=== PATIENT | female | born 1980 | race Caucasian/White ===

== ENCOUNTER → 2019-03-04 17:59 | Outpatient (CLI) | payer OTHER, SELFPAY ==
[2019-03-04 13:32] VITALS: BMI 22.3
[2019-03-04 20:41] LABS: Chlamydia Trachomatis by PCR Negative (Negative); Neisserai gonorrhoeae by PCR Negative (Negative); Probe Check PASS; Sample Adequacy Control PASS; Specimen Processing Control PASS
[2019-03-07 13:42] LABS: HPV APTIMA, High Risk Negative (Negative)
== END ==
PROVIDERS: Family Provider Family Medicine; PCP Family Medicine; Referring Provider Obstetrics & Gynecology; Visit Provider Obstetrics & Gynecology
DX: O09.529 Supervision of elderly multigravida, unspecified trimester (principal); Z12.4 Encounter for screening for malignant neoplasm of cervix
CPT/HCPCS: 87086; 87491; 87591; 87624; 88175; G0145

== ENCOUNTER → 2019-04-01 | Outpatient (CLI) | payer OTHER, SELFPAY ==
[2019-04-01 11:27] VITALS: BMI 22.3
[2019-04-01 11:56] LABS: Absolute Lymphocyte Count 1.11 X10^3/ul (0.83-4.51); Absolute Neutrophil Count 5.6 X10^3/uL (2.0-7.7); Basophil# 0.01 X10^3/uL; Basophil% 0.1 % (0-1); Eosinophil# 0.04 X10^3/uL; Eosinophils% 0.6 % (0-5); Hemoglobin 13.9 g/dl (12.0-15.0); Lymphocyte # 1.11 X10^3/ul (4.0); Lymphocyte % 15.7 % (19-41); Mean Corp Hgb Conc 34.8 g/gl (32-36); Mean Corpuscular Hgb 31.8 pg (27.0-32.0); Mean Corpuscular Volume 91.5 fL (81-99); Mean Platelet Vol. 9.9 fl (6.2-12.0); Monocyte# 0.31 X10^3/uL; Monocyte% 4.4 % (0-10); Neutrophil # 5.58 X10^3/uL (2.7-7.7); Neutrophil % 79.1 % (47-70); POSITIVE COUNT NO; POSITIVE DIFFERENTIAL NO; POSITIVE MORPHOLOGY NO; Platelet Count 215 K/mm3 (150-450); RBC Distribution Width SD 43.5 fl (35.1-43.9); Red Blood Count 4.37 M/mm3 (4.2-5.4); White Blood Count 7.1 K/mm3 (4.4-11.0)
[2019-04-01 13:47] LABS: HIV - WCH Non-Reactive (Nonreactive); Rubella IgG > 500.0 IU/mL
[2019-04-02 13:24] LABS: HEPATITIS B SURFACE AG Negative (Negative)
[2019-04-04 03:28] LABS: Rapid Plasmin Reagin (RPR) NONREACTIVE (NONREACTIVE)
== END | disposition home or self-care (01) ==
LOC: PAVLAB 11:41
PROVIDERS: Family Provider Family Medicine; PCP Family Medicine; Referring Provider Obstetrics & Gynecology; Visit Provider Obstetrics & Gynecology
DX: O09.529 Supervision of elderly multigravida, unspecified trimester (principal); Z3A.00 Weeks of gestation of pregnancy not specified
CPT/HCPCS: 36415; 85025; 86592; 86703; 86762; 86850; 86900; 87340

== ENCOUNTER → 2019-07-22 | Outpatient (CLI) | payer OTHER, SELFPAY ==
[2019-07-22 10:16] VITALS: BMI 24.8
[2019-07-22 11:15] LABS: Absolute Lymphocyte Count 0.98 X10^3/uL (0.83-4.51); Absolute Neutrophil Count 4.7 X10^3/uL (2.0-7.7); Basophil# 0.01 X10^3/uL; Basophil% 0.2 % (0-1); Eosinophil# 0.03 X10^3/uL; Eosinophils% 0.5 % (0-5); Hematocrit 37.2 % (37-47); Hemoglobin 12.7 g/dL (12.0-15.0); Lymphocyte # 0.98 X10^3/ul (4.0); Lymphocyte % 16.3 % (19-41); Mean Corp Hgb Conc 34.1 g/dL (32-36); Mean Corpuscular Hgb 32.1 pg (27.0-32.0); Mean Corpuscular Volume 93.9 fL (81-99); Monocyte# 0.28 X10^3/uL; Monocyte% 4.7 % (0-10); NRBC Flagged by Analyzer 0 % (0-5); Neutrophil # 4.68 X10^3/uL (2.7-7.7); Platelet Count 155 K/mm3 (150-450); RBC Distribution Width CV 12.9 % (11.6-14.6); RBC Distribution Width SD 44.4 fl (35.1-43.9); Red Blood Count 3.96 M/mm3 (4.2-5.4)
[2019-07-22 11:25] LABS: Glucose Challenge Gest 1H 50g 87 mg/dL (70-140)
== END | disposition home or self-care (01) ==
LOC: PAVLAB 10:52
PROVIDERS: Family Provider Family Medicine; PCP Family Medicine; Visit Provider Obstetrics & Gynecology
DX: Z34.90 Encounter for supervision of normal pregnancy, unspecified, unspecified trimester (principal); Z3A.28 28 weeks gestation of pregnancy
CPT/HCPCS: 36415; 82950; 85025

== ENCOUNTER 2019-07-29 13:00 | Outpatient (CLI) | payer OTHER, SELFPAY ==
[2019-07-22 10:16] VITALS: BMI 24.8
[2019-07-29 13:18] VITALS: BMI 25.9
--- NOTE | 2019-07-29 13:24 | VDLE_ITS ---
Reason For Study: Pain RIGHT LEFT GSV is normal. GSV is normal. CFV is compressible, spontaneous, phasic, CFV is compressible, spontaneous, phasic, competent and demonstrates normal competent, and demonstrates normal augmentation. augmentation. FV is compressible, spontaneous, phasic, FV is compressible, spontaneous, phasic, competent and demonstrates normal competent and demonstrates normal augmentation. augmentation. POP V is compressible, spontaneous, phasic, POP V is compressible, spontaneous, phasic, competent and demonstrates normal competent and demonstrates normal augmentation. augmentation. T/P Trunk is compressible. T/P Trunk is compressible. PTV is compressible. PTV is compressible. RT PerV is compressible. LT PerV is compressible. Thrombus filled varicose veins noted in the posterior prximal calf. Procedure Exam performed in department. A preliminary report was called and/or faxed to Pt's Nurse. Interpretation Summary No evidence for acute deep venous thrombosis bilateral lower extremities.Patent and compressible bilateral great saphenous veins. Superficial thrombophlebitis right proximal posterior calf varicosities. Ordering Physician: Jailene Marques Referring Physician: Krystin Meneses Performed By: Shala Mckeon RVT
[2019-07-29 14:16] LABS: Bacteria 0 SEEN /hpf (None Seen); Mucous, Urine 0 SEEN /hpf (<or=2+); Red Blood Cells-Urine 0 SEEN /hpf (0-5); Squamous Epithelial Cells - UA 0 SEEN /hpf (5-10); White Blood Cells 0 SEEN /hpf (0-5)
[2019-07-29 14:19] LABS: Color, Urine Straw (Yellow); Glucose, Dipstick Normal (Normal); Ketone-Dipstick Negative (Negative); Leukocyte Esterase-Dipstick Negative /ul (Negative); Nitrite-Dipstick Negative (Negative); Occult Blood-Urine Negative /ul (Negative); Protein-Dipstick Negative (Negative); Specific Gravity, Urine 1.005 (1.002-1.030); Urine Bilirubin Dipstick Negative (Negative); Urine Clarity Clear (Clear); Urine Urobilinogen Normal (Normal)
--- NOTE | 2019-07-30 05:38 | OB.TRI.PN_ITS ---
Progress Notes Date of Service: 07/29/19 Progress Note: Patient seen for contractions and right posterior calf pain. Patient has had a history of varicose veins and works as a beautician. She is declined compression stockings previously and in the last day or 2 she has noted increase pain in her right upper calf superficially and feels a lump there. FHT: 130 moderate variability reactive no decelerations category I tracing [place]: No regular contractions Assessment and plan superficial thrombi-itis and right calf, discussed with Dr. Barber recommend 81 mg aspirin and compression stockings, follow-up in the office with Dr. owen. Local supportive care encouraged. Cervix closed with no labor remnant. Laboratory Studies: Laboratory Tests 07/29/19 Range/Units 14:00 Urine Color Straw (Yellow) Urine Clarity Clear (Clear) Urine pH 7.0 (5.0 - 8.0) Ur Specific [place] 1.005 (1.002-1.030) Urine Protein Negative (Negative) mg/dl Urine Glucose (UA) Normal (Normal) mg/dl Urine Ketones Negative (Negative) mg/dl Urine Occult Blood Negative (Negative) /ul Urine Nitrite Negative (Negative) Urine Bilirubin Negative (Negative) mg/dL Urine Urobilinogen Normal (Normal) mg/dl Ur Leukocyte Esterase Negative (Negative) /ul Urine RBC 0 SEEN (0-5) /hpf Urine WBC 0 SEEN (0-5) /hpf Ur Squamous Epith Cells 0 SEEN (5-10) /hpf Urine Bacteria 0 SEEN (None Seen) /hpf Urine Mucus 0 SEEN (<or=2+) /hpf - Problem List (1) Threatened labor Status: Acute Comment: cervix closed 07/29 (2) Superficial thrombophlebitis during Status: Acute Comment: 81 mg asa, compressiong stockings, cs with dr owen 07/31 Multi Select Codes - Urinary/Genital Urinary/Genital CPT Codes: 91085-66 non-stress test Interp
== END 2019-07-29 16:45 | disposition home or self-care (01) ==
LOC: WPOUT 13:10 → WP 13:10
PROVIDERS: Family Provider Family Medicine; PCP Family Medicine; Referring Provider Obstetrics & Gynecology; Visit Provider Obstetrics & Gynecology
DX: O60.00 Preterm labor without delivery, unspecified trimester (principal); O22.20 Superficial thrombophlebitis in pregnancy, unspecified trimester; O22.00 Varicose veins of lower extremity in pregnancy, unspecified trimester; Z3A.00 Weeks of gestation of pregnancy not specified
CPT/HCPCS: 59025; 59050; 81001; 93970; 99218; G0378

== ENCOUNTER → 2019-09-10 16:25 | Outpatient (CLI) | payer OTHER, SELFPAY ==
[2019-09-10 15:52] VITALS: BMI 26.5
== END ==
PROVIDERS: Family Provider Family Medicine; PCP Family Medicine; Referring Provider Nurse Practitioner Women's Health; Visit Provider Nurse Practitioner Women's Health
DX: Z34.93 Encounter for supervision of normal pregnancy, unspecified, third trimester (principal); Z3A.36 36 weeks gestation of pregnancy
CPT/HCPCS: 87081

== ENCOUNTER → 2019-09-16 | Outpatient (CLI) | payer OTHER, SELFPAY ==
[2019-09-05 14:07] VITALS: BMI 26.5
[2019-09-10 15:52] VITALS: BMI 26.5
--- NOTE | 2019-09-16 12:19 | US_ITS ---
STUDY: SECOND AND THIRD TRIMESTER OBSTETRICAL ULTRASOUND - LIMITED REASON FOR EXAM: Female, 39 years old growth. LMP: January 03, 2019. PRIOR ULTRASOUND: None. TECHNIQUE: Transabdominal TECHNICAL QUALITY: Adequate. FINDINGS: There is a single intrauterine fetus. The fetus is in a cephalic presentation. There is demonstrated cardiac activity with a heart rate of 173 bpm. There is a normal amniotic fluid volume. The largest amniotic fluid pocket measures 5.5 cm x 6.5 cm. The amniotic fluid index (CLAUDIA) is 14.5 cm. The placenta is posterior in location and is not low lying. There are Grade 1 placental changes. The cervix length was not measured due to the empty bladder. BIOMETRY: BPD: 8.93 cm: 36 weeks, 1 days HC: 32.28 cm: 36 weeks, 3 days AC: 32.38 cm: 36 weeks, 2 days FL: 7.0 cm: 36 weeks, 1 days Age by LMP: 36 weeks, 4 days. ABHINAV by LMP: October 10, 2019. age by current US: 36 weeks, 3 days. ABHINAV by current US: October 11, 2019. Estimated weight: 2901 grams, +/- 429 grams, 49 percentile. US/OB Limited With Biometrics IMPRESSION: Single live intrauterine gestation with a mean gestational age of 36 weeks and 3 days. Electronically Signed: Mahesh Henriquez, at 15:17 EDT , Service support ,
== END | disposition home or self-care (01) ==
PROVIDERS: Family Provider Family Medicine; PCP Family Medicine; Referring Provider Nurse Practitioner Women's Health; Visit Provider Nurse Practitioner Women's Health
DX: O09.529 Supervision of elderly multigravida, unspecified trimester (principal); Z3A.00 Weeks of gestation of pregnancy not specified
CPT/HCPCS: 76816

== ENCOUNTER 2019-09-25 19:35 | Inpatient (IN) | payer OTHER, SELFPAY ==
[2019-09-25 16:22] VITALS: BMI 27.8
[2019-09-25] MEDS: Lactated Ringers 500 ML 999 ML IV ×2 (19:50→21:10)
[2019-09-25 19:55] VITALS: BMI 27.0
[2019-09-25 20:11] LABS: Absolute Lymphocyte Count 2.06 X10^3/uL (0.83-4.51); Absolute Neutrophil Count 6.5 X10^3/uL (2.0-7.7); Basophil# 0.02 X10^3/uL; Basophil% 0.2 % (0-1); Eosinophil# 0.07 X10^3/uL; Eosinophils% 0.8 % (0-5); Hematocrit 40.1 % (37-47); Hemoglobin 13.6 g/dL (12.0-15.0); Lymphocyte # 2.06 X10^3/ul (4.0); Lymphocyte % 22.6 % (19-41); Mean Corp Hgb Conc 33.9 g/dL (32-36); Mean Corpuscular Hgb 31.4 pg (27.0-32.0); Mean Corpuscular Volume 92.6 fL (81-99); Mean Platelet Vol. 10.9 fl (6.2-12.0); Monocyte# 0.45 X10^3/uL; Monocyte% 4.9 % (0-10); NRBC Flagged by Analyzer 0 % (0-5); Neutrophil # 6.46 X10^3/uL (2.7-7.7); Neutrophil % 71.1 % (47-70); Platelet Count 144 K/mm3 (150-450); RBC Distribution Width CV 13.1 % (11.6-14.6); RBC Distribution Width SD 43.8 fl (35.1-43.9); Red Blood Count 4.33 M/mm3 (4.2-5.4); White Blood Count 9.1 K/mm3 (4.4-11.0)
[2019-09-25] MEDS: Lactated Ringers 1,000 ML 200 ML IV (20:20)
[2019-09-25] MEDS: fentaNYL-bupivacaine (epidural) 100 ML BAG EPIDURAL (20:32)
[2019-09-25] MEDS: Ondansetron 4 MG/2 ML Vial IV (21:10)
--- NOTE | 2019-09-25 22:18 | HP.PCM_ITS ---
History Date of Admission: 09/25/19 Final ABHINAV: 10/10/19 Final ABHINAV Source: US <20 weeks Gestational age: 37 Weeks and 6 Days History of this : This is a 39 year-old, , at 37 weeks gestational age presents IAL 6 cm dilated. 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 Anti-Embolism Stocking] See Rx Instructions .ROUTE .MEDSUPPLY 09/25/19 Compress.stocking,Knee,Reg,Med [Truform Compression Stocking] See Rx Instructions .ROUTE .MEDSUPPLY 09/25/19 Smoking Status: Never smoker Alcohol: None Number of Fetus(es): 1 NST - FHR Rate Baby A Baseline: 130 Variability:: Moderate Accelerations:: 15 x 15 Decelerations:: None NST Reactive:: Yes FHR Category:: Category I Uterine Activity:: q 2-3 History Past Pregnancies: Past Pregnancies Pregancy History 3 Elective abortions Hx Para 2 Spontaneous abortions Hx # Term Pregnancies 2 Ectopic pregnancies Hx # Pregnancies Multiple births # of living children 2 Past Pregnancies Del. Date Name GA/Weeks Outcome Route Bth Weight Infant Gen Labor Lgth Anesthesia Del Locatn Provider FOB Unknown 2013- To 38 live - full term 7lbs 4oz Female 1 2+ epidural [facility] Daryl Dennis Unknown Abi 38 live - full term 6lbs 8oz Female epidural [facility] DENIS Delivery Date: On 03/04/19 @ 13:45 Kenya Cho meconium aspiration, resuscitation Delivery Date: On 03/04/19 @ 13:47 Kenya Cho abnormal genetic testing possible Trisomy 21 Labs: Mom's Labs & Results 09/25/19 09/25/19 19:50 19:50 WBC 9.1 RBC 4.33 Hgb 13.6 Hct 40.1 MCV 92.6 MCH 31.4 MCHC 33.9 RDW Std Deviation 43.8 RDW Coeff of Mason 13.1 Plt Count 144 L MPV 10.9 Immature Gran % (Auto) 0.400 Neut % (Auto) 71.1 H Lymph % (Auto) 22.6 [place] % (Auto) 4.9 Eos % (Auto) 0.8 Baso % (Auto) 0.2 Absolute Neuts (auto) 6.5 Absolute Lymphs (auto) 2.06 Nucleated RBC % 0 Blood Type A POSITIVE Antibody Screen NEGATIVE Course Did the patient receive Yes care? Labs Blood Type: A RH: POSITIVE RPR/VDRL/Syphilis Nonreactive Rubella status Immune HbSAg Negative Date Done: 04/01/19 Chlamydia Negative Gonorrhea Negative HIV/AIDS Non-Reactive Group B Strep: Negative Current Obstetrical History Gestational Diabetes No Incompetent Cervix No Infertility No IUGR No Macrosomia No Hypertension/Pre-eclampsia No Placenta Previa/Abruption No PTL/PROM No Uterine anomaly No Oligohydramnios No Polyhydramnios No Multiple gestation No Past Medical History Asthma No Diabetes No Hypertension No Heart disease No Mitral valve prolapse Yes Neurologic/Seizure disorder/ No Migraines Kidney disease No Liver disease No Varicosities Yes: bilateral legs Clotting disorders/Hx of DVT Yes: clots noted in both legs this , took ASA Thyroid Dysfunction No Other medical diseases No Psychiatric disorders No Major trauma No Abnormal PAP smear Yes Sleep apnea No Mammogram in the last 2 years No Social History Marital Status: Alleged father Pito Hx Smoking No Smoking Status Never smoker How long have you used denied use substances (years)? Expected Delivery Method: Spontaneous Vaginal Review of Systems Constitutional: Denies: Fever, Malaise Eyes: Denies: Blurred vision, Vision Change HEENT: Denies: Head Aches, Visual Changes Cardiovascular: Denies: Chest Pain, Palpitations Respiratory: Denies: Cough, Shortness of Breath, Wheezing Gastrointestinal: Denies: Abdominal Pain, Diarrhea, Nausea, Vomiting Genitourinary: Denies: Dysuria, Hematuria Musculoskeletal: Denies: Joint Pain, Muscle pain Skin: Denies: Lesions, Rash Neurological: Denies: Blurred vision, Focal weakness, Headaches Psychiatric: Denies: Anxiety, Depression Endocrine: Denies: Heat/ Cold Intolerance Hematologic/ Lymphatic: Denies: Easy Bruising, Easy Bleeding Physical Exam General: Alert, Cooperative, No apparent distress HEENT: Atraumatic, Normocephalic. Negative for: Thyromegaly, Lymphadenopathy Cardiovascular: Regular rate Lungs: Normal air movement Abdomen: Soft, Non Tender, Gravid Neurological: Deep Tendon Reflexes 2+/4 and Symmetrical, Neuro grossly intact. Negative for: Clonus ELECTRONIC COURT RECORDER: Normal external genitalia. Negative for: Vulvar lesions Estimated gestational size: Appropriate for gestational size Presentation: Cephalic Assessment/Plan All Active Problems (Last Reviewed 09/25/19 @ 16:18 by Margot Marcano) Influenza vaccination declined (Acute) Threatened labor (Acute) Superficial thrombophlebitis during (Acute) Supervision of high risk elderly multigravida in first trimester (Acute) (Acute) AMA (advanced maternal age) multigravida 35+ (Acute) This is a 39 year-old, at 37 weeks gestational age presents IAL. Patient presents IAL, plan expectant management for , pitocin/AROM PRN if needed. Pain management: Plans epidural. GBS negative. Management of any complications: None I have reviewed the [facility] and made any clinically relevant updates.
[2019-09-25] MEDS: Oxytocin 30 units/NS 500 ml 30 UNITS/500 ML IV.SOLN 334 UNITS IV (22:49)
--- NOTE | 2019-09-25 23:00 | PCM.OPRPT ---
Vaginal Delivery Maternal Presentation: Active Labor ial Amniotic Membrane Rupture Type: Artificial Amniotic Fluid Description: Clear Surgery/ Procedure Performed: Spontaneous Vaginal Delivery Type of Anesthesia: Epidural Description of Procedure: Patient began pushing and delivered the head in the CHINO presentation. The head was delivered atraumatically. The anterior and posterior shoulders delivered without complication followed by the rest of the infant and the infant was placed on the maternal abdomen. Delayed cord clamping was employed for approximately 60 seconds. Cord was clamped and cut and gentle traction was applied to the cord and the placenta delivered spontaneously immediately following it was noted to be intact with three-vessel cord. The perineum and vagina were inspected and a first-degree perineal laceration was noted and repaired in the usual fashion with 3-0 Vicryl Rapide. EBL was 200 cc. Patient and infant tolerated delivery well. Presentation: CHINO Placental Delivery Description: Spontaneous Placenta Disposition: [facility] Cord Entanglement: None Infant A gender: Male Episiotomy Description: None Laceration: Perineal Extension/lac, 1st degree Medications given after delivery: IV Pitocin Complications: None Multi Select Codes - Urinary/Genital Urinary/Genital CPT Codes: 39738 Vaginal Delivery [facility]
[2019-09-25] MEDS: Methylergonovine 0.2 MG/ML Ampul IM (23:30)
[2019-09-26 00:45] VITALS: BP 106/69; PULSE 68; RESP 18; TEMP 36.3; O2SAT 100
[2019-09-26 03:45] VITALS: BP 124/76; PULSE 108; RESP 18; TEMP 36.9
[2019-09-26] MEDS: Naproxen 250 MG Tablet 500 MG PO ×2 (03:57→12:52)
--- NOTE | 2019-09-26 08:29 | PN.OBGYN_ITS ---
Subjective: doing well no complaints pain controlled no CP SOB N V ambulating well tolerating po lochia moderate, going well - Physical Exam Vitals/I&O's: Vital Signs Temp Pulse Resp BP Pulse Ox 98.4 F 108 H 18 124/76 H 100 09/26/19 03:45 09/26/19 03:45 09/26/19 03:45 09/26/19 03:45 09/26/19 00:45 Oxygen Delivery Method Room Air Weight: 155 lb Body Mass Index (BMI) 27.0 Intake and Output for Last 24 Hours 09/24/19 09/25/19 09/26/19 23:59 23:59 23:59 Intake Total 2202.67 / 2202.67 483 / 483 Output Total 300 / 300 1200 / 1200 Balance 1902.67 / 1902.67 -717 / -717 General: Alert, Oriented x3 Abdomen: Soft, Non Tender, Non-Distended, - - FF below U Laboratory Results 09/25/19 19:50: WBC 9.1, RBC 4.33, Hgb 13.6, Hct 40.1, MCV 92.6, MCH 31.4, MCHC 33.9, RDW Std Deviation 43.8, RDW Coeff of Mason 13.1, Plt Count 144 L, MPV 10.9, Immature Gran % (Auto) 0.400, Neut % (Auto) 71.1 H, Lymph % (Auto) 22.6, [place] % (Auto) 4.9, Eos % (Auto) 0.8, Baso % (Auto) 0.2, Absolute Neuts (auto) 6.5, Absolute Lymphs (auto) 2.06, Nucleated RBC % 0 09/25/19 19:50: Blood Type A POSITIVE, Antibody Screen NEGATIVE Current Medications Acetaminophen (Tylenol) 1,000 mg PO Q8H PRN PRN PRN Reason: Pain Score 1-3/10 Bisacodyl (Dulcolax) 10 mg RECTAL UD PRN PRN Reason: If no BM Dibucaine (Dibucaine) 1 applic TOPICAL TID PRN PRN; Protocol PRN Reason: Discomfort Hydrocortisone (Hytone) 1 applic TOPICAL TID PRN PRN; Protocol PRN Reason: Discomfort Methylergonovine Maleate (Methergine) 0.2 mg IM X1 PRN PRN Reason: Excess bleeding/uterine atony Last Admin: 09/25/19 23:30 Dose: 0.2 mg Documented by: Naproxen (Naprosyn) 500 mg PO Q8H PRN PRN PRN Reason: Pain Score 1-3/10 Last Admin: 09/26/19 03:57 Dose: 500 mg Documented by: Ondansetron HCl (Zofran) 4 mg IV Q4H PRN PRN PRN Reason: Nausea Oxycodone HCl (Oxyir) 5 - 10 mg PO Q4H PRN PRN PRN Reason: Pain Score 4-10/10 Senna/Docusate Sodium (Senokot-S, Autumn-Colace) 1 - 2 tablet PO DAILY PRN PRN PRN Reason: Constipation Simethicone (Mylicon) 80 mg PO PCHS PRN PRN Reason: Indigestion/Stomach pain Sodium Chloride () 5 - 15 ml IV UD PRN PRN Reason: SALINE FLUSH Medical Necessity - Tobacco Use Smoking Status: Never smoker Assessment/Plan All Active Problems (Last Reviewed 09/25/19 @ 16:18 by Margot Marcano) Influenza vaccination declined (Acute) Threatened labor (Acute) Superficial thrombophlebitis during (Acute) Supervision of high risk elderly multigravida in first trimester (Acute) (Acute) AMA (advanced maternal age) multigravida 35+ (Acute) s/p PPD # 1 1. routine post delivery care 2. breast feeding- support given 3. rh positive 4. rubella immune
--- NOTE | 2019-09-26 08:30 | DCINST_ITS ---
Additional Instructions: If you experience any of the following, contact your healthcare provider. * Bleeding that soaks a pad every hour for 2 hours * Fever 100.4 or higher * Unrelieved incision or abdominal pain * Swelling, redness, discharge or bleeding from your incision or episiotomy site * Your incision begins to separate * Problems urinating (including inability to urinate or burning while urinating). * Visual changes * Severe headache * Flu-like symptoms * Pain or redness in one of both of your breasts * Pain, warmth, tenderness or swelling in your legs, especially the calf area * Frequent nausea and vomiting * Symptoms of depression or anxiety If you experience any of the following, call 911 or go to the nearest Emergency Room. * Chest pain * Problems breathing * Seizure activity * Partial or complete paralysis of a body part, slurred speech, weakness or drooping of the face, or a sudden inability to walk or hold your balance Allergies/Adverse Reactions: Allergies No Known Allergies Allergy (Verified 09/25/19 20:32) Medications to take at Discharge Vits [Prenatabs FA ] 1 tab PO DAILY 06/30/14 ondansetron 4 mg disintegrating tablet 4 mg PO Q4H PRN #60 tab 08/04/19 Aspirin [Aspirin, Baby] 81 mg PO DAILY@0800 09/25/19 Compr.stocking,Thigh,Reg,Small [T.e.d. Anti-Embolism Stocking] See Rx Instructions .ROUTE .MEDSUPPLY 09/25/19 Compress.stocking,Knee,Reg,Med [Truform Compression Stocking] See Rx Instr uctions .ROUTE .MEDSUPPLY 09/25/19 Primary Care Physician: Krystin Meneses MD [Primary Care Provider] - Test Results: Test results from this visit will be discussed in further detail at your follow- up appointment, if applicable.
--- NOTE | 2019-09-26 08:30 | PCM.DCVAG ---
Additional Instructions: If you experience any of the following, contact your healthcare provider. Bleeding that soaks a pad every hour for 2 hours Fever 100.4 or higher Unrelieved incision or abdominal pain Swelling, redness, discharge or bleeding from your incision or episiotomy site Your incision begins to separate Problems urinating (including inability to urinate or burning while urinating). Visual changes Severe headache Flu-like symptoms Pain or redness in one of both of your breasts Pain, warmth, tenderness or swelling in your legs, especially the calf area Frequent nausea and vomiting Symptoms of depression or anxiety If you experience any of the following, call 911 or go to the nearest Emergency Room. Chest pain Problems breathing Seizure activity Partial or complete paralysis of a body part, slurred speech, weakness or drooping of the face, or a sudden inability to walk or hold your balance Allergies/Adverse Reactions: Allergies No Known Allergies Allergy (Verified 09/25/19 20:32) Medications to take at Discharge Vits [Prenatabs FA ] 1 tab PO DAILY 06/30/14 ondansetron 4 mg disintegrating tablet 4 mg PO Q4H PRN #60 tab 08/04/19 Aspirin [Aspirin, Baby] 81 mg PO DAILY@0800 09/25/19 Compr.stocking,Thigh,Reg,Small [T.e.d. Anti-Embolism Stocking] See Rx Instructions .ROUTE .MEDSUPPLY 09/25/19 Compress.stocking,Knee,Reg,Med [Truform Compression Stocking] See Rx Instructions .ROUTE .MEDSUPPLY 09/25/19 Primary Care Physician: Krystin Meneses MD [Primary Care Provider] - Test Results: Test results from this visit will be discussed in further detail at your follow-up appointment, if applicable.
[2019-09-26 08:38] VITALS: BP 95/61; PULSE 102; RESP 16; TEMP 37.3; O2SAT 97
[2019-09-26] MEDS: Acetaminophen 500 MG Tablet 1000 MG PO ×2 (08:50→17:12)
[2019-09-26 12:35] VITALS: BP 111/57; PULSE 80; RESP 16; TEMP 37.4; O2SAT 97
[2019-09-26 16:00] VITALS: BP 104/71; PULSE 88; RESP 18; TEMP 37.3; O2SAT 96
[2019-09-26 20:40] VITALS: BP 97/65; PULSE 90; RESP 18; TEMP 36.6
[2019-09-27 02:30] VITALS: BP 97/52; PULSE 74; RESP 18; TEMP 36.6
[2019-09-27 07:57] VITALS: BP 108/64; PULSE 83; RESP 16; TEMP 36.7
--- NOTE | 2019-09-27 09:03 | PCM.PN.OB ---
Subjective: doing well no complaints pain controlled no CP SOB N V ambulating well tolerating po lochia moderate, going well some discomfort to existing varicosities outer left leg. States not worse then prior to . - Physical Exam Vitals/I&O's: Vital Signs Temp Pulse Resp BP Pulse Ox 98.0 F 83 16 108/64 96 09/27/19 07:57 09/27/19 07:57 09/27/19 07:57 09/27/19 07:57 09/26/19 16:00 Oxygen Delivery Method Room Air Weight: 155 lb Body Mass Index (BMI) 27.0 Intake and Output for Last 24 Hours 09/25/19 09/26/19 09/27/19 23:59 23:59 23:59 Intake Total 2202.67 / 2202.67 483 / 483 Output Total 300 / 300 1200 / 1200 Balance 1902.67 / 1902.67 -717 / -717 General: Alert, Oriented x3 Abdomen: Soft, Non Tender, Non-Distended, - - FF below U Extremities: - - outer left leg with persistant varicosities. No erythema, cool to touch, stable Current Medications Acetaminophen (Tylenol) 1,000 mg PO Q8H PRN PRN PRN Reason: Pain Score 1-3 Last Admin: 09/26/19 17:12 Dose: 1,000 mg Documented by: Bisacodyl (Dulcolax) 10 mg RECTAL UD PRN PRN Reason: If no BM Dibucaine (Dibucaine) 1 applic TOPICAL TID PRN PRN; Protocol PRN Reason: Discomfort Hydrocortisone (Hytone) 1 applic TOPICAL TID PRN PRN; Protocol PRN Reason: Discomfort Methylergonovine Maleate (Methergine) 0.2 mg IM X1 PRN PRN Reason: Excess bleeding/uterine atony Last Admin: 09/25/19 23:30 Dose: 0.2 mg Documented by: Naproxen (Naprosyn) 500 mg PO Q8H PRN PRN PRN Reason: Pain Score 1-3/10 Last Admin: 09/26/19 12:52 Dose: 500 mg Documented by: Ondansetron HCl (Zofran) 4 mg IV Q4H PRN PRN PRN Reason: Nausea Oxycodone HCl (Oxyir) 5 - 10 mg PO Q4H PRN PRN PRN Reason: Pain Score 4-10/10 Senna/Docusate Sodium (Senokot-S, Autumn-Colace) 1 - 2 tablet PO DAILY PRN PRN PRN Reason: Constipation Simethicone (Mylicon) 80 mg PO PCHS PRN PRN Reason: Indigestion/Stomach pain Sodium Chloride () 5 - 15 ml IV UD PRN PRN Reason: SALINE FLUSH Medical Necessity - Tobacco Use Smoking Status: Never smoker Assessment/Plan All Active Problems (Last Reviewed 09/25/19 @ 16:18 by Margot Marcano) Influenza vaccination declined (Acute) Threatened labor (Acute) Superficial thrombophlebitis during (Acute) Supervision of high risk elderly multigravida in first trimester (Acute) (Acute) AMA (advanced maternal age) multigravida 35+ (Acute) s/p PPD # 2 1. routine post delivery care 2. breast feeding- support given 3. rh positive 4. rubella immune 5. May restart baby ASA, support hose, call if redness, swelling or worsening of symptoms
[2019-09-27] MEDS: Naproxen 250 MG Tablet 500 MG PO (11:03)
== END 2019-09-27 11:35 | disposition home or self-care (01) | DRG 807 ==
PROVIDERS: Admitting Provider Obstetrics & Gynecology; Family Provider Family Medicine; PCP Family Medicine; Visit Provider Obstetrics & Gynecology
DX: O87.4 Varicose veins of lower extremity in the puerperium (principal); O70.0 First degree perineal laceration during delivery; Z37.0 Single live birth; Z3A.37 37 weeks gestation of pregnancy; Z86.718 Personal history of other venous thrombosis and embolism
CPT/HCPCS: 59025; 59050; 85025; 86850; 86900; 86901; 99218; J7120; G0378; J2405

== ENCOUNTER → 2019-09-29 10:49 | Outpatient (CLI) | payer OTHER, SELFPAY ==
[2019-09-25 19:55] VITALS: BMI 27.0
--- NOTE | 2019-09-29 10:53 | VDLE_ITS ---
Reason For Study: Swelling RIGHT LEFT GSV is normal. GSV is normal. CFV is compressible, spontaneous, phasic, CFV is compressible, spontaneous, phasic, competent and demonstrates normal competent, and demonstrates normal augmentation. augmentation. FV is compressible, spontaneous, phasic, FV is compressible, spontaneous, phasic, competent and demonstrates normal competent and demonstrates normal augmentation. augmentation. POP V is compressible, spontaneous, phasic, POP V is compressible, spontaneous, phasic, competent and demonstrates normal competent and demonstrates normal augmentation. augmentation. T/P Trunk is compressible. T/P Trunk is compressible. PTV is compressible. PTV is compressible. RT PerV is compressible. LT PerV is compressible. Varicosity noted Rt proximal, posterior calf Varicosity noted Lt lateral thigh that is non that is partially compressible with bright compressible and dilated consistent with intraluminal echoes consistent with chronic acute SVT. SVT. Procedure Exam performed in department. A preliminary report was called and/or faxed to Juanis Frost LO[facility] STARTER. Interpretation Summary No evidence for acute deep venous thrombosis bilateral lower extremities Chronic superficial thrombophlebitis right proximal posterior calf. Acute superficial thrombophlebitis left lateral thigh Patent and compressible bilateral great saphenous veins Ordering Physician: Juanis Silveira Referring Physician: Krystin Meneses Performed By: Melyssa Kilpatrick, NOHEMI, RVT
== END ==
PROVIDERS: Family Provider Family Medicine; PCP Family Medicine; Referring Provider Obstetrics & Gynecology; Visit Provider Obstetrics & Gynecology
DX: O22.20 Superficial thrombophlebitis in pregnancy, unspecified trimester (principal); Z3A.00 Weeks of gestation of pregnancy not specified
CPT/HCPCS: 93970

== ENCOUNTER → 2022-09-18 | Outpatient (CLI) | payer OTHER, SELFPAY ==
[2022-09-24 18:53] LABS: HPV APTIMA, High Risk Negative (Negative)
== END | disposition home or self-care (01) ==
LOC: LABSPEC 17:02
PROVIDERS: PCP Family Medicine; Visit Provider Nurse Practitioner Women's Health
DX: Z12.4 Encounter for screening for malignant neoplasm of cervix (principal)
CPT/HCPCS: 87624; 88175; G0145

== ENCOUNTER → 2025-09-15 | Outpatient (CLI) | payer SELFPAY, OTHER ==
--- NOTE | 2025-09-15 17:51 | US_ITS ---
PROCEDURE: PELVIC (NON ) 09/15/2025 REASON FOR EXAM: PAIN. LMP 08/22/2025. TECHNIQUE: Procedure Code: USPEL Modality: US Procedure: PELVIC (NON ) TRANSABDOMINAL FINDINGS: ENDOMETRIUM: Hyperechoic. Normal thickness of 13.0 mm. No abnormal endometrial color Doppler flow. UTERUS: Anteverted. Normal size and contour measuring 8.6 x 5.6 x 4.5 cm. No fibroid detected. CERVIX: Normal size and contour. RIGHT OVARY: Normal size and appearance measuring 3.6 x 2.0 x 1.8 cm (volume 6.9 mL). Normal follicles. Normal blood flow. No adnexal mass. LEFT OVARY: Normal size and appearance measuring 2.8 x 2.3 x 1.5 cm (volume 4.8 mL). Normal follicles. Normal blood flow. No adnexal mass. FREE FLUID: No free fluid. OTHER: Normal urinary bladder morphology with a volume of 567.1 mL. US/Pelvic (Non ) IMPRESSION: NORMAL TRANSABDOMINAL PELVIC ULTRASOUND. Reading Location: [id number]
== END | disposition home or self-care (01) ==
LOC: US 17:49
PROVIDERS: PCP Family Medicine; Referring Provider Nurse Practitioner Women's Health; Visit Provider Nurse Practitioner Women's Health
DX: R52 Pain, unspecified (principal)
CPT/HCPCS: 76856